=== PATIENT | female | born 1985 | race Caucasian/White ===

== ENCOUNTER → 2024-03-29 | Day surgery (SDC) | payer OTHER ==
[~2024-03-29] MED LIST: ACETAMINOPHEN-1 EAC3 PO; ATENOLOL50 MG PO; BUTALB-ACETAMI1 EAC2 PO; CELEBREX200 MG PO; CYCLOBENZAPRINE5 MG PO; FOLIC ACID0.4 MG PO; IBUPROFEN200 MG PO; LACTATED RINGER'S 1,000 ML ONE; LIDOCAINE HCL 2% LOCAL INJ 5 ML SDV VIAL INJ ONE; METFORMIN HCL500 MG PO; METHOTREXATE2.5 MG PO; METOCLOPRAMIDE HCL 10 MG/2ML VIAL ONE; NEURONTIN300 MG PO; ONDANSETRON ODT4 MG SL; PANTOPRAZOLE SO40 MG PO; PEPCID20 MG PO; PROMETHAZINE HC25 M1 PO; PROPOFOL IV EMULSION 10 MG/ML 20 ML VIAL ONE; SPIRONOLACTONE1 EACH; TIZANIDINE HCL4 MG PO; TRIAMTERENE-HCTZ1 EA PO; VITAMIN D31 ML; VITAMIN D3250 MCG
[2024-03-29 14:45] VITALS: TEMP 97.4
[2024-03-29 15:15] VITALS: BP 130/80; PULSE 77; RESP 16; O2SAT 98
[2024-04-02 19:14] LABS: ENDOMYSIAL ANTIBODIES, IGA Negative (Negative)
[2024-04-03 06:00] LABS: IMMUNOGLOBULIN A 109 mg/dL (87-352); TISSUE TRANSGLUTAMINASE IGA AB <2 U/mL (0-3)
== END | disposition home or self-care (01) ==
LOC: ENDO 12:45
PROVIDERS: ATTEND Internal Medicine Gastroenterology
DX: K29.50 Unspecified chronic gastritis without bleeding (principal); K22.10 Ulcer of esophagus without bleeding; K31.89 Other diseases of stomach and duodenum; K21.9 Gastro-esophageal reflux disease without esophagitis; Z71.3 Dietary counseling and surveillance; E66.01 Morbid (severe) obesity due to excess calories; I10 Essential (primary) hypertension; Z71.89 Other specified counseling; M06.9 Rheumatoid arthritis, unspecified; M32.9 Systemic lupus erythematosus, unspecified; M34.9 Systemic sclerosis, unspecified; R05.3 Chronic cough; Z88.2 Allergy status to sulfonamides; Z01.810 Encounter for preprocedural cardiovascular examination; Z68.42 Body mass index [BMI] 45.0-49.9, adult; Z86.16 Personal history of COVID-19
CPT/HCPCS: 43239; 43450; 82784; 83516; 86256; 93005; J2003; J2470; J2704; J2765; J7121